=== PATIENT | male | born 1995 | race Two or more races ===

== ENCOUNTER 2024-12-15 01:00 | Emergency (ER) | payer OTHER ==
[~2024-12-15] VITALS: Ht 177.8 cm; Wt 65.8 kg
[2024-12-15 01:07] VITALS: BP 109/79; TEMP 98.7; O2SAT 100
== END 2024-12-15 02:30 ==
LOC: ER 01:02
DX: R06.02 Shortness of breath (principal); R07.89 Other chest pain; R00.2 Palpitations